=== PATIENT | male | born 1985 | race Caucasian/White ===

== ENCOUNTER 2024-05-24 09:09 | Emergency (ER) | payer OTHER, SELFPAY ==
[2024-05-24 09:22] VITALS: BP 152/114
[2024-05-24 11:03] VITALS: BMI 33.0
[2024-05-24 11:08] VITALS: BP 150/93
--- NOTE | 2024-05-24 11:08 | ED.GENMED ---
History of Present Illness
General
Chief Complaint: Musculo-Skeletal Complaint
Source: patient
Time Seen by Provider: 05/24/24 10:39
History of Present Illness
History of Present Illness:
38-year-old male with past medical history of hypertension and seizure disorder presenting to the emergency department for evaluation of atraumatic right knee pain that has been ongoing since May 14, somewhat improved midweek this week but states
that yesterday evening into today pain got worse prompting him to come to the ER today. He notes decreased range of motion secondary to pain and swelling. Denies any fevers or infectious symptoms or any traumatic injuries. Notes that few years
ago he had gout within his left knee and had fluid removed from the left knee a few years ago here. No other concerns at this time.
Past History
Past History
ED Past Medical History: HTN and Psychiatric
ED Past Surgical History: None
Social History
Tobacco: Non-smoker
Alcohol: Occasional
Drug: None
Personal:
Living: with family
Employment: Employed
Review of Systems
Review of Systems
All Other Systems: ROS reviewed and negative except as documented in HPI and ROS
Phy Exam
Physical Exam
Physical Exam:
GENERAL: Alert , in no apparent distress
EYE: conjunctiva clear
Head: Normocephalic atraumatic
NECK: Supple,
ENT: mmm.
LUNGS: no acute respiratory distress
NEUROLOGICAL: Alert and oriented
SKIN: Warm and dry, skin intact.
MUSCULOSKELETAL: Right knee: Mild soft tissue swelling with small proximal and lateral joint effusion appreciated. Patient does allow for some flexion and extension of the knee but notes increased pain while doing so. There is no overlying
erythema. No calf tenderness or edema. Remainder of extremities otherwise warm and well-perfused and neurovascularly intact.
PSYCH: Normal and appropriate interaction.
Scores
Heart Failure Risk
Heart Failure Risk Score: Not Applicable
Heart Score for Chest Pain Patients
STEMI patient?: Not applicable
Withdrawal Assessment of Alcohol
Withdrawal Assessment Completed?: Not applicable
Course
Orders/Labs/Results
Orders:
Orders
05/24/24 09:26
CR Knee- Right 4 Or More View* Urgent
Comment:
Reason For Exam: pain
05/24/24 11:08
Body Fluid Cell Count Urgent
What is the Body Fluid: synovial, right knee
Date Specimen was Collected: 05/24/24
Time Specimen was Collected: 11:07
Body Fluid Crystals Urgent
What is the Body Fluid: synovial, right knee
Date Specimen was Collected: 05/24/24
Time Specimen was Collected: 11:07
Lyme PCR, DNA [S] Routine
Vital Signs
Initial and Last Documented VS:
Initial Vital Signs
Temp Pulse Resp BP Pulse Ox
98.2 F 114 18 152/114 98
05/24/24 09:22 05/24/24 09:22 05/24/24 09:22 05/24/24 09:22 05/24/24 09:22
Last Documented Vital Signs
Temp Pulse Resp BP Pulse Ox
98.2 F 106 18 150/93 98
05/24/24 09:22 05/24/24 11:08 05/24/24 09:22 05/24/24 11:08 05/24/24 09:22
Procedures
Incision/Drainage/Joint Aspiration
Right Knee:
Anethesia: 1% Lidocaine
Preparation: cleaned with Betadine
Type of procedure: aspiration
How much fluid was obtained?: number in mls (25)
Fluid description: blood tinged and yellowish
Treatment: bandaid applied
MDM/Problems Addressed
Differential Diagnosis Includes:
Gout, osteoarthritis, patient does not have symptoms to suggest septic arthritis, no mechanism for fracture
MDM/Problems Addressed:
38-year-old male presenting to the emergency department for evaluation of atraumatic right knee pain for around 10 days. Symptoms seem to subside a little bit but returned yesterday and increased pain and decreased range of motion today. Patient
does have a small effusion and was amenable to right knee arthrocentesis. Risks versus benefits discussed with the patient who is agreeable with proceeding with the procedure. Patient did note some relief of symptoms following the procedure. Body
fluid sent for further evaluation. Disposition pending
*Radiology
Radiology exam reviewed: preliminary read by ED provider (mild degenerative changes)
*Pulse Oximetry
Patient hypoxic: no
*Critical Care Note
Total Time (30-74mins, 75-104mins- exclusive of procedures): Not Applicable
Data Reviewed
Review of Other/Old Records Reveals: Labs and Records
Source: patient and records
Patient Management
Escalation/DeEscalation of care consider admission/obs:
Patient requesting to be discharged. His fluid analysis is still pending. Will prophylactically give prednisone active gout. X-ray findings were noted for degenerative changes. Provided with information for orthopedics. I also encouraged close
follow-up with primary care provider for patient's hypertension. Aware of return precautions to the ER.
I contacted patient back. Monosodium urate crystals seen. Patient made aware of findings. Continue prednisone. Outpatient follow up.
ED Attending Note
-
Portions of this chart may have been created with voice recognition software.� Occasional wrong word or��sound alike� substitutions may have occurred due to the inherent limitations of voice recognition software.
Discharge Plan
Departure
Patient Disposition: Home (Routine Discharge)
Date of Disposition: 05/24/24
Time of Disposition: 12:42
Patient with high blood pressure during this ER visit?: Yes
Discharge Problem:
Pain in right knee, Hypertension
Instructions: Knee Pain (DC)
Prescriptions:
New
prednisone 20 mg tablet
40 mg PO DAILY 7 Days Qty: 14 0RF
No Action
ibuprofen 800 mg tablet
800 mg PO Q6H 7 Days Qty: 28 0RF
Referrals:
UNKNOWN - PT DOES,NOT KNOW [Family Provider] -
Chris Chiang MD [Active] - (Ortho)
Stand Alone Forms: Return to Work
Interventions
Interventions:
*Risk Screen - Suicide Last Done: 05/24/24 09:22
*General Assessment Last Done: 05/24/24 09:22
*Neglect/Abuse Screening Last Done: 05/24/24 09:22
ED- Fall Risk Assessment Last Done: 05/24/24 11:03
*ED COVID-19 Vaccine History Last Done: 05/24/24 09:22
*Nursing Disposition Last Done: 05/24/24 13:02
ED-Musculoskeletal Assessment Last Done: 05/24/24 11:04
Discharge Date and Time
Discharge Date/Time: 05/24/24 13:02
Print Language: HONDURAN
[2024-05-24 13:45] LABS: Body Fluid Mononuclear 12.2 %; Body Fluid Polymorphonuclear 87.8 %; Body Fluid WBC 12050 /CUMM
[2024-05-24 13:51] LABS: Body Fluid Second Tech HB
[2024-05-28 15:52] LABS: Lyme Disease DNA by PCR Not Detected; Lyme Source Synovial fluid
== END 2024-05-24 13:02 | disposition home or self-care (01) ==
LOC: EMR 09:09
PROVIDERS: Physician Assistant Medical; EMERGENCY PHYSICIAN Student in an Organized Health Care Education/Training Program
DX: M25.561 Pain in right knee (principal); M25.461 Effusion, right knee; M10.9 Gout, unspecified; I10 Essential (primary) hypertension; R56.9 Unspecified convulsions
CPT/HCPCS: 20610; 99283; 73564; 87476; 89051; 89060